=== PATIENT | female | born 1985 | race Two or more races ===

== ENCOUNTER 2016-12-07 06:08 | Inpatient (IN) | payer OTHER ==
--- NOTE | 2016-11-29 15:24 | PDOC1 ---
- HPI 31 year old G3] P[2001] at [39]-[0]/7 weeks gestational age by LMP, confirmed with [19]-week ultrasound who desires repeat LTCS for means of delivery due to history of prior LTCSx2. She presents for assessment and review of history in anticipation of her upcoming surgery. Today patient denies any changes in health. Her course has been followed for the following problem list. The patient's first C/S was d/t chorioamnionitis. The second was a failed TOLAC. She presents today for RLTCS. She declines a bilateral tubal ligation. POBHx; 04/2011 C/S d/t chorioamnionitis, 11/2015 RCS, failed tolac, 11/2016- current PGYN; denies h/o abn pap, STD PMH: denies PSH: C/S x2 Meds: PNV All: NKDA FH: noncontributory SH: denies etoh, tob, rec drug use. A/P: 31yo @39.0 for RLTCS. Admit. Routine labs. Ancef OC to OR Will proceed with RLTCS. SOCIAL HISTORY: Marital status: [], FOB involved: [], No Tobacco, alcohol use, or drug use. FAMILY HISTORY: No congenital abnormalities or twins. - Labs & Studies LABS: Blood Type-[], Antibody [NEG], Rubella [Immune], RPR-[Negative], HbsAg-[Negative], HIV-[Negative] Pap [], GC/Chlamydia-[Negative], UA-[Negative], Quad/Integrated Screen-[Negative], 1 hr GTT-[], 3 hr GTT [], GBS-[] REVIEW OF DATES: LMP []/[]/[] -> SVEN []/[]/[] Ultrasound on []/[] @ [] []/7 WGA -> EDC []/[]/[] Ultrasound on []/[] @ [] []/7 WGA -> EDC []/[]/[] - Physical Exam General: Afebrile Psych/Mental Status: Mood/Affect Appropriate, Judgment/Insight Intact Neurological: Grossly Intact, Alert, Oriented x 4 HEENT: Atraumatic, PERRLA, EOMI Lungs: Clear to Auscultation Bilaterally, Normal Air Movement Cardiovascular: Regular Rate and Rhythm, Normal S1, Normal S2 Abdomen: Normal Bowel Sounds Extremities: Full ROM Skin: Normal Color, Warm, Dry, Intact - Assessment & Plan 23 y/o G3] P[2002] at [39]-[0]/7 weeks by [LMP=20 wk US] who will present for schedule repeat LTCS. Discussed with patient the risks of including infection, bleeding possibly requiring blood transfusion and even hysterectomy, damage to underlying structures including bowel, bladder, uterus, tubes, ovaries, baby, and ureter, as well as will have a scar and can have persistent pain and numbness at incision site. The patient agrees to proceed with LTCS and will arrive at scheduled time for preop. She was advised to avoid any food or drink 8 hours prior to scheduled surgery.
[2016-12-07] MEDS ORDERED: LACTATED RINGERS 1,000 ML ONE (06:09)
[2016-12-07] MEDS ORDERED: IV START KIT ONE (06:09)
[2016-12-07] MEDS ORDERED: CEFAZOLIN SODIUM 2 GRAM DUPLEX 2 G in Premix (D5W) 50 ml 1 EACH IV PRN (06:10)
[2016-12-07] MEDS ORDERED: CEFAZOLIN SODIUM 2 GRAM DUPLEX 50 ML IV ONE (06:10)
[2016-12-07] MEDS ORDERED: LACTATED RINGERS 1,000 ML IV SCH (06:10)
[2016-12-07 06:39] LABS: HEMATOCRIT 37.3 % (37.0-47.0); HEMOGLOBIN 12.8 gm/l (12.0-16.0); MEAN CORPUSCULAR HEMOGLOBIN 31.2 pg (27.0-31.0); MEAN CORPUSCULAR HGB CONC 34.3 g/dl (33.0-37.0); RED CELL DISTRIBUTION WIDTH 13.6 % (11.5-14.5)
[2016-12-07 06:53] VITALS: BMI 31.1
[2016-12-07] MEDS ORDERED: MORPHINE SULFATE (DURAMORPH) 1 MG/ML 10ML AMP ONE (06:57)
[2016-12-07] MEDS ORDERED: OXYTOCIN 10 UNITS/ML VIAL ONE (06:57)
[2016-12-07] MEDS ORDERED: SPINAL PROCEDURAL TRAY 1 EACH ONE (06:57)
[2016-12-07] MEDS ORDERED: KETOROLAC TROMETHAMINE 30 MG/ML 1 ML VIAL ONE (06:57)
[2016-12-07] MEDS ORDERED: FENTANYL 100 MCG/2 ML VIAL ONE (06:58)
[2016-12-07] MEDS ORDERED: HYDROMORPHONE HCL 2 MG/ML SYRINGE IV PRN (08:00)
[2016-12-07] MEDS ORDERED: MORPHINE SULFATE 2 MG/ML SYRINGE IV PRN (08:00)
[2016-12-07] MEDS ORDERED: NALOXONE HCL 0.4 MG/ML VIAL IV PRN (08:00)
[2016-12-07] MEDS ORDERED: MORPHINE SULFATE 10 MG/ML SYRINGE IV PRN (08:00)
[2016-12-07] MEDS ORDERED: DIPHENHYDRAMINE HCL 50 MG/1 ML VIAL IV PRN (08:00)
[2016-12-07] MEDS ORDERED: ONDANSETRON 4 MG/2ML 2 ML VIAL IV PRN (08:00)
[2016-12-07] MEDS ORDERED: NALBUPHINE HCL 20 MG/ML AMP IV PRN (08:00)
[2016-12-07] MEDS ORDERED: MORPHINE SULFATE 4 MG/ML SYRINGE IV PRN (08:00)
[2016-12-07] MEDS ORDERED: HYDROMORPHONE HCL 1 MG/ML SYRINGE IV PRN (08:00)
[2016-12-07] MEDS ORDERED: PROMETHAZINE HCL 25 MG/ML VIAL IM PRN (08:00)
--- NOTE | 2016-12-07 08:49 | PCMBPN ---
Brief Post Op Note: Date of Procedure: 12/07/16 Start Time: [] Preoperative Diagnosis: 1. [IUP at term, H/O previous ceserean section x2] Postoperative Diagnosis: 1. [Same] Procedure: [repeat low transverse ceserean section, lysis of adhesions] Surgeon: Jeannie Temple DO Assist:[Christina Schaefer] Anesthesia: [spinal] Findings: [dense adhesions to anterior uterine wall] Condition: [stable] Complications: [dense adhesions] IV Fluids: [2200] mLs of LR [] Urine Output: [50] mLs Estimated Blood Loss: [500] mLs Tourniquet Time: [N/A] Specimens: [viable female neonated] Implants: [none] Drains: [N/A] JOB #[id number]
[2016-12-07] MEDS ORDERED: EPHEDRINE SULFATE 50 MG/ML 1ML VIAL ONE (09:05)
[2016-12-07] MEDS: EPHEDRINE SULFATE 50 MG/ML 1ML VIAL IV PRN ×3 (09:08→09:37)
[2016-12-07] MEDS ORDERED: LANOLIN 50 APPLIC/7G TUBE TP PRN (09:24)
[2016-12-07] MEDS ORDERED: BENZOCAINE/MENTHOL 60 APPLIC/BOT TP PRN (09:24)
[2016-12-07] MEDS ORDERED: LACTATED RINGERS 1,000 ML IV PRN (09:24)
[2016-12-07] MEDS ORDERED: ACETAMINOPHEN 325 MG TABLET PO PRN (09:24)
--- NOTE | 2016-12-07 12:09 | OP ---
Funmi Lloyd : 1985 DATE OF PROCEDURE: 12/07/2016 PREOPERATIVE DIAGNOSES: 1. Intrauterine at term. 2. History of previous section x2. POSTOPERATIVE DIAGNOSES: 1. Intrauterine at term. 2. History of previous section x2. PROCEDURE: Repeat low transverse section, lysis of adhesions. SURGEON: Jeannie Temple D.O. RESIDENT CARE SUPERVISOR: Christina Schaefer CNM ANESTHESIA: Spinal. FINDINGS: Dense adhesions to the anterior abdominal wall. CONDITION: Stable. COMPLICATIONS: Dense adhesions. IV FLUIDS: 2200 mL of lactated ringers. URINE OUTPUT: 50 mL of clear yellow urine. ESTIMATED BLOOD LOSS: 500 mL. SPECIMENS: A viable female . IMPLANTS: None. DRAINS: None. PROCEDURE: Patient was taken back to the operating room with IV fluids running where spinal anesthesia was easily obtained. Two grams of Ancef were given for infection prophylaxis. She was prepped and draped in a dorsal supine position in a normal sterile fashion. SCD's were applied to her lower extremities. After anesthesia was found to be adequate a pfannenstiel skin incision was made. The incision was carried down to the fascia with a Bovie. The fascia was incised in the midline and extended laterally using Spence scissors. The peritoneum was identified and entered bluntly. Dense adhesions to the anterior surface of the uterine wall were noted. Vesicouterine peritoneum was identified and a bladder flap was developed. A second knife was used to incise the uterus this was carried down to the level of the amniotic sac. The amniotic sac was ruptured to clear fluid. The uterine incision was extended. The fetus was found to be in cephalic presentation. Head was gently elevated out of the pelvis through the uterine incision and fundal pressure was applied to deliver the neonates head. No nuchal cord was identified and fundal pressure was used to deliver the remainder the atraumatically. Once the was delivered 30 seconds was waited before the cord was clamped and cut and the baby was handed off to the waiting nurse. Cord blood was collected and the placenta was delivered with manual extraction. Because of the dense uterine adhesions the uterus was left in situ. A moist lap was used to clear out the uterus of blood clots and debris and an 0 Vicryl was used in a running locked fashion to close the uterine incision. Upon closure of the uterine incision the uterine incision was found to be hemostatic, but there was approximately a 5 cm section of anterior uterine wall that was bleeding due to disruption of the dense uterine adhesions. This defect was closed with 0 Vicryl suture in a running locked fashion and at the completion of the closure that was found also to be hemostatic. A last look was taken at all operative sites and hemostasis was again identified. Because of the adhesions the peritoneum was not able to be closed, so 0 Vicryl suture was used to close the fascial layer in a running fashion. Hemostasis was identified on the muscle belly prior to closure. Three zero plain was used to reapproximate one corner of the abdominal incision to facilitate skin closure and the skin was then closed with 4-0 Vicryl and a Gerardo needle. The patient was easily aroused from anesthesia. She was transferred to recovery in stable condition. All instrument, needle, and sponge counts were reported to be correct x3. JOB: [id number]
[2016-12-07] MEDS: KETOROLAC TROMETHAMINE 30 MG/ML 1 ML VIAL IV SCH ×2 (14:48→20:46)
[2016-12-08] MEDS: KETOROLAC TROMETHAMINE 30 MG/ML 1 ML VIAL IV SCH (02:15)
[2016-12-08 06:35] LABS: HEMATOCRIT 31.5 % (37.0-47.0); HEMOGLOBIN 10.7 gm/l (12.0-16.0)
[2016-12-08] MEDS: DOCUSATE SODIUM 100 MG CAPSULE PO PRN (09:25)
[2016-12-08] MEDS: IBUPROFEN 800 MG TABLET PO PRN ×3 (11:04→23:04)
--- NOTE | 2016-12-08 12:08 | PDOC44 ---
- Subjective Day: 1 Pt sitting up in bed, comfortable. Baby girl (Chaya) with dad and older sister Kayla. Pain adequately controlled. Eating some. Pt needs to get out of bed and get vera out yet. This was her 3rd c/section and she did have dense adhesions. Reports Flatus, Reports Pain Tolerable, Reports , Reports Lochia Light - Objective Temp Pulse Resp BP Pulse Ox 98.4 F 93 14 103/60 99 12/08/16 08:44 12/08/16 08:44 12/08/16 08:44 12/08/16 08:44 12/07/16 12:35 Lab Results 12/08/16 06:00 Hgb 10.7 L D Hct 31.5 L Current Medications Generic Name Dose Route Start Last Admin Trade Name Freq PRN Reason Stop Dose Admin Acetaminophen 325 - 650 mg 12/07/16 09:24 Tylenol PO Q4H PRN Pain (Mild) Benzocaine/Menthol 1 applic 12/07/16 09:24 Dermoplast TP PRN PRN Patient Comfort Docusate Sodium 100 mg 12/07/16 09:24 12/08/16 09:25 Colace PO 100 mg DAILY PRN Administration Comfort Emollient Ointment 1 applic 12/07/16 09:24 12/08/16 11:45 [id number] TP 1 tube PRN PRN Administration sore nipples Lactated Ringer's 1,000 mls @ 100 mls/hr 12/07/16 09:24 12/07/16 10:12 Lactated Ringers IV 100 mls/hr .Q10H PRN Administration Titrate per clinical situation Ibuprofen 800 mg 12/07/16 09:24 12/08/16 11:04 Motrin PO 800 mg Q6H PRN Administration Pain (Mild) Oxycodone/Acetaminophen 1 - 2 tab 12/07/16 09:24 Percocet 5/325 PO Q4H PRN Pain (Moderate) Sodium Chloride 10 ml 12/07/16 09:24 12/07/16 20:46 Normal Saline 10ml Flush IV 10 ml PRN PRN Administration IV Flush Sodium Chloride 10 ml 12/07/16 17:00 12/08/16 09:25 Normal Saline 10ml Flush IV 10 ml Q8HR LISSETTE Administration - Physical Exam General: Afebrile Psych/Mental Status: Mood/Affect Appropriate, Bonding Well Neurological: Alert, Oriented x 4 Lungs: Clear to Auscultation Bilaterally Cardiovascular: Regular Rate and Rhythm Fundus: Firm, Below Umbilicus Abdomen: Normal Bowel Sounds, No Distention Lochia: Light Skin: Normal Color, Warm, Dry Wound TIGHTENER: Dressing Clean/Dry/Intact (Dressing removed, incision excellent) - Problems:Assessment/Plan (1) Status post repeat low transverse section Status: AcuteAssessment/Plan: Uncomplicated c/section on 12/07 with lysis of adhesions. EBL 500cc. Hct 31.5% today. Pt is recovering well. Disposition: Anticipate DC Home Tomorrow
[2016-12-09] MEDS: IBUPROFEN 800 MG TABLET PO PRN ×3 (06:09→19:32)
[2016-12-09] MEDS: OXYCODONE/ACETAMINOPHEN 5/325 MG TABLET PO PRN ×4 (07:51→22:26)
--- NOTE | 2016-12-09 08:50 | PDOC44 ---
- Subjective Day: 2 Sp third c/section. Pt is a little more sore today but doing well. She would like to shower but is not ready to go home as yet. Baby girl is sleeping at her side. Reports Flatus, Reports Pain Tolerable, Reports , Reports Lochia Light (Bleeding is less than before) - Objective Temp Pulse Resp BP Pulse Ox 97.9 F 97 18 102/67 99 12/09/16 07:39 12/09/16 07:39 12/09/16 07:39 12/09/16 07:39 12/07/16 12:35 Current Medications Generic Name Dose Route Start Last Admin Trade Name Freq PRN Reason Stop Dose Admin Acetaminophen 325 - 650 mg 12/07/16 09:24 Tylenol PO Q4H PRN Pain (Mild) Benzocaine/Menthol 1 applic 12/07/16 09:24 Dermoplast TP PRN PRN Patient Comfort Docusate Sodium 100 mg 12/07/16 09:24 12/08/16 09:25 Colace PO 100 mg DAILY PRN Administration Comfort Emollient Ointment 1 applic 12/07/16 09:24 12/08/16 11:45 [id number] TP 1 tube PRN PRN Administration sore nipples Lactated Ringer's 1,000 mls @ 100 mls/hr 12/07/16 09:24 12/07/16 10:12 Lactated Ringers IV 100 mls/hr .Q10H PRN Administration Titrate per clinical situation Ibuprofen 800 mg 12/07/16 09:24 12/09/16 06:09 Motrin PO 800 mg Q6H PRN Administration Pain (Mild) Oxycodone/Acetaminophen 1 - 2 tab 12/07/16 09:24 12/09/16 07:51 Percocet 5/325 PO 1 tab Q4H PRN Administration Pain (Moderate) Sodium Chloride 10 ml 12/07/16 09:24 12/07/16 20:46 Normal Saline 10ml Flush IV 10 ml PRN PRN Administration IV Flush Sodium Chloride 10 ml 12/07/16 17:00 12/09/16 06:09 Normal Saline 10ml Flush IV 10 ml Q8HR LISSETTE Administration - Physical Exam General: Afebrile Psych/Mental Status: Mood/Affect Appropriate, Bonding Well Neurological: Oriented x 4 Lungs: Clear to Auscultation Bilaterally Cardiovascular: Regular Rate and Rhythm Abdomen: Normal Bowel Sounds Lochia: Light Skin: Normal Color, Warm, Dry Wound ASSOCIATE CHIEF NURSE: Well Approximated - Problems:Assessment/Plan (1) Status post repeat low transverse section Status: AcuteAssessment/Plan: Uncomplicated c/section on 12/07 with lysis of adhesions. EBL 500cc. Hct 31.5% today. Pt is recovering well. Disposition: Anticipate DC Home Tomorrow
[2016-12-09] MEDS: DOCUSATE SODIUM 100 MG CAPSULE PO PRN (09:09)
[2016-12-10] MEDS: OXYCODONE/ACETAMINOPHEN 5/325 MG TABLET PO PRN ×3 (02:35→11:57)
[2016-12-10] MEDS: IBUPROFEN 800 MG TABLET PO PRN ×2 (02:35→10:58)
[2016-12-10] MEDS: DOCUSATE SODIUM 100 MG CAPSULE PO PRN (07:36)
[2016-12-10 08:09] VITALS: BP 101/58
--- NOTE | 2016-12-10 11:28 | PDOC39B ---
Hospital Course: ADMIT DATE: 12/07/16 DISCHARGE DATE: 12/10/16 ADMISSION DIAGNOSES: Term , desires repeat c/section PROCEDURES: Repeat low transverse c/section HISTORY OF PRESENT ILLNESS: 31 year old G3 T2 L2 at 39 weeks 0 days presenting for elective repeat c/section at term. HOSPITAL COURSE: The patient delivered baby female, 8lbs 12oz. Pt had a normal postoperative course. By day of discharge the patient is ambulating, eating, voiding, and passing flatus without difficulty. Pain is controlled and lochia is appropriate. She is []. Pt is discharged with percocet and colace. F/u 2 weeks. Vital Signs - 24 hr 12/09/16 12/09/16 12/10/16 14:36 19:14 02:17 Temperature 97.5 F 97.4 F 98.0 F Pulse Rate 89 89 83 Respiratory 18 16 16 Rate Blood Pressure 104/52 99/72 100/62 12/10/16 07:40 Temperature 97.9 F Pulse Rate 85 Respiratory 16 Rate Blood Pressure 101/58 Laboratory Tests 12/07/16 12/07/16 12/08/16 06:00 06:25 06:00 WBC 13.4 H RBC 4.10 L Hgb 12.8 10.7 L D Hct 37.3 31.5 L MCV 91.0 MCH 31.2 H MCHC 34.3 RDW 13.6 Plt Count 330 Syphilis IgG/IgM Ab Non-reactive - Physical Exam Vital Signs: Temp Pulse Resp BP Pulse Ox 97.9 F 85 16 101/58 99 12/10/16 07:40 12/10/16 07:40 12/10/16 07:40 12/10/16 07:40 12/07/16 12:35 - Discharge Plan Instruction Forms: Section Discharge Instructions Prescriptions: Docusate Sodium [COLACE 100 MG CAPSULE (SHF)] 100 mg PO DAILY PRN #30 cap PRN Reason: Constipation Oxycodone HCl/Acetaminophen [PERCOCET 5/325 MG TABLET (SHF)] 1 - 2 tab PO Q4H PRN #40 tab PRN Reason: Pain Follow-Up: Jeannie Temple DO [Staff Physician] - In 2 weeks
== END 2016-12-10 12:00 | disposition home or self-care (01) | DRG 766 ==
LOC: FBC 06:08
PROVIDERS: ADMIT Obstetrics & Gynecology; ATTEND Obstetrics & Gynecology
PROC: 10D00Z1 Extraction of Products of Conception, Low, Open Approach (ICD-10-PCS; principal; 2016-12-07)
DX: O34.211 Maternal care for low transverse scar from previous cesarean delivery (principal); Z3A.39 39 weeks gestation of pregnancy; Z37.0 Single live birth